=== PATIENT | male | born 1955 | race Caucasian/White ===

== ENCOUNTER 2019-10-05 22:42 | Inpatient (IN) ==
[2019-10-05] MEDS ORDERED: ASPIRIN 325 MG TABLET PO STA (23:27)
[2019-10-05] MEDS ORDERED: NITROGLYCERIN SL 0.4 MG TABLET SL PRN (23:27)
[2019-10-05 23:48] LABS: Basophils # 0.1 10*3/uL (0.0-0.2); Basophils % 0.8 % (0.0-0.8); Eosinophils % 0.2 % (0.00-10.9); Hematocrit 48.9 VOL% (42.0-52.0); Hemoglobin 16.4 GM/DL (14.0-18.0); Immature Granulocytes % 0.6 %; Immature Granulocytes Absolute 0.09 #; Lymphocytes # 4.2 10*3/uL (1.4-4.0); Lymphocytes % 28.6 % (21.2-54.2); Mean Corpuscular HGB Conc 33.5 GM/DL (32-36); Mean Corpuscular Volume 97.2 FL (87-102); Mean Platelet Volume 9.8 FL (9.6-12.0); Monocytes % 10.3 % (1.7-12.7); Neutrophils % 59.5 % (38.7-73.9); Platelet Count 274 T/CUMM (130-400); Red Blood Count 5.03 MC/CUMM (3.8-5.5); Red Cell Distribution Width 14.5 % (9.3-17.3); White Blood Count 14.6 T/CUMM (4-12)
[2019-10-05 23:53] LABS: Albumin 3.9 G/DL (3.4-5.0); Bilirubin,Total 0.5 MG/DL (0.2-1.0); Calcium 9.2 MG/DL (8.5-10.1); Osmolality,Calculated 283.4 MOS/KG (273-304); Total Protein 7.1 G/DL (6.4-8.3)
[2019-10-06 00:03] LABS: PT Patient Result 10.6 SECS (9.8-11.9)
[2019-10-06] MEDS ORDERED: ONDANSETRON 4 MG/2 ML VIAL IV ONE (00:31)
[2019-10-06] MEDS ORDERED: ENOXAPARIN 30 MG/0.3 ML SYRINGE SUBCUT STA (00:31)
[2019-10-06] MEDS ORDERED: MORPHINE 4 MG/1 ML VIAL IV STA (00:31)
[2019-10-06] MEDS ORDERED: ENOXAPARIN 100 MG/ML SYRINGE SUBCUT STA (00:34)
[2019-10-06] MEDS ORDERED: TICAGRELOR 90 MG TABLET PO STA (01:18)
[2019-10-06] MEDS ORDERED: NICOTINE 21 MG/24 HR PATCH TRANSDERM PRN (01:31)
[2019-10-06] MEDS ORDERED: guaiFENesin/DM ER 600-30 MG TABLET PO PRN (01:31)
[2019-10-06] MEDS ORDERED: hydrALAZINE 20 MG/1 ML VIAL IV PRN (01:31)
[2019-10-06] MEDS ORDERED: diphenhydrAMINE CAP 25 MG CAPSULE PO PRN (01:31)
[2019-10-06] MEDS ORDERED: DEXTROSE 50% 25 GM/50 ML VIAL IV PRN (01:31)
[2019-10-06] MEDS ORDERED: ALUMINUM/MAGNES/SIMETH MAX STR 30 ML UDCUP PO PRN (01:31)
[2019-10-06] MEDS ORDERED: ACETAMINOPHEN 325 MG TABLET PO PRN (01:31)
[2019-10-06] MEDS ORDERED: GLUCAGON 1 MG VIAL IM PRN (01:31)
[2019-10-06] MEDS ORDERED: MORPHINE 4 MG/1 ML VIAL IV PRN (01:31)
[2019-10-06] MEDS ORDERED: ONDANSETRON 4 MG/2 ML VIAL IV PRN (01:31)
[2019-10-06 02:03] LABS: Risk Ratio 8.06; VLDL CHOLESTEROL 99.6 MG/DL
[2019-10-06] MEDS ORDERED: NITROGLYCERIN SL 0.4 MG TABLET SL PRN (02:44)
[2019-10-06 09:05] LABS: CKMB % 6.2 %
[2019-10-06 09:11] LABS: Troponin I 22.4 NG/ML (0.00-0.045)
[2019-10-06 09:18] LABS: Apearance,Urine CLEAR (Clear); Bilirubin,Urine Negative (Negative); Blood, Urine Negative (Negative); Glucose,Urine (UA) Negative (Negative); Ketones,Urine Negative (Negative); Mucus,Urine Occasional /LPF (Occasional); Nitrite,Urine Negative (Negative); Protein,Urine Negative; RBC,Urine 3 /HPF (0-4); Squamous Epithelial Cell,Urine Occasional /HPF (0-10); Urine Color Yellow (Yellow); Urine Urobilinogen < 2.0 EU/DL (0.2-1.0); WBC,Urine 10 /HPF (0-6)
[2019-10-06] MEDS ORDERED: diphenhydrAMINE CAP 25 MG CAPSULE PO ONE (10:53)
[2019-10-06] MEDS ORDERED: DIAZEPAM 5 MG TABLET PO ONE (10:53)
[2019-10-06] MEDS ORDERED: LIDOCAINE 1% 20 ML VIAL ONE (11:18)
[2019-10-06] MEDS ORDERED: HEPARIN/NACL 0.9% 2 UNITS/ML 1,000 ML IV ONE (11:18)
[2019-10-06] MEDS: SODIUM CHLORIDE 0.45% 1,000 ML IV SCH ×2 (11:37→21:01)
[2019-10-06] MEDS: ASPIRIN EC 81 MG TABLET PO SCH (11:37)
[2019-10-06] MEDS ORDERED: NITROGLYCERIN DRIP 50 MG/250 ML BOTTLE IV ONE (11:42)
[2019-10-06] MEDS ORDERED: VERAPAMIL 5 MG/2 ML VIAL ONE (11:42)
[2019-10-06] MEDS ORDERED: MIDAZOLAM 2 MG/2 ML VIAL ONE (11:47)
[2019-10-06] MEDS ORDERED: HYDROmorphone 2 MG/1 ML VIAL ONE (11:47)
[2019-10-06 12:05] LABS: CKMB % 6.6 %
[2019-10-06 12:15] LABS: Troponin I 29.6 NG/ML (0.00-0.045)
[2019-10-06] MEDS ORDERED: SODIUM CHLORIDE 0.9% 1,000 ML IV SCH (12:30)
[2019-10-06 14:22] LABS: CKMB % 6.5 %
[2019-10-06 14:23] LABS: Troponin I 27.7 NG/ML (0.00-0.045)
[2019-10-06] MEDS: CLOPIDOGREL 75 MG TABLET PO SCH (14:28)
[2019-10-06] MEDS ORDERED: ROSUVASTATIN 20 MG TABLET PO SCH (21:00)
[2019-10-06] MEDS: carvediloL 3.125 MG TABLET PO SCH (21:02)
[2019-10-07] MEDS: SODIUM CHLORIDE 0.45% 1,000 ML IV SCH ×2 (05:59→14:27)
[2019-10-07 06:11] LABS: Basophils # 0.1 10*3/uL (0.0-0.2); Basophils % 1.3 % (0.0-0.8); Eosinophils # 0.4 10*3/uL (0.0-0.87); Eosinophils % 4.5 % (0.00-10.9); Hematocrit 44.4 VOL% (42.0-52.0); Immature Granulocytes % 0.5 %; Immature Granulocytes Absolute 0.04 #; Lymphocytes # 2.8 10*3/uL (1.4-4.0); Lymphocytes % 36.2 % (21.2-54.2); Mean Corpuscular HGB Conc 33.8 GM/DL (32-36); Mean Corpuscular Volume 96.5 FL (87-102); Mean Platelet Volume 9.5 FL (9.6-12.0); Monocytes % 11.3 % (1.7-12.7); Neutrophils % 46.2 % (38.7-73.9); Platelet Count 209 T/CUMM (130-400); Red Cell Distribution Width 14.3 % (9.3-17.3); White Blood Count 7.7 T/CUMM (4-12)
[2019-10-07 06:28] LABS: Calcium 7.9 MG/DL (8.5-10.1); Osmolality,Calculated 276.5 MOS/KG (273-304)
[2019-10-07 08:42] LABS: CKMB % 3.6 %
[2019-10-07 08:43] LABS: Troponin I 15.4 NG/ML (0.00-0.045)
[2019-10-07] MEDS: ASPIRIN EC 81 MG TABLET PO SCH (08:56)
[2019-10-07] MEDS: carvediloL 3.125 MG TABLET PO SCH (08:56)
[2019-10-07] MEDS: CLOPIDOGREL 75 MG TABLET PO SCH (08:56)
[2019-10-07 11:49] VITALS: BP 155/84
[2019-10-08] MEDS ORDERED: LOSARTAN 25 MG TABLET PO SCH (09:00)
== END 2019-10-07 14:12 | disposition home or self-care (01) | DRG 281 ==
LOC: N.ED 22:42 → N.TELEN 22:42
PROVIDERS: ADMIT Internal Medicine; ATTEND Internal Medicine

== ENCOUNTER 2021-12-18 17:23 | Inpatient (IN) ==
[2021-12-18 17:44] LABS: Basophils # 0.1 10*3/uL (0.0-0.2); Basophils % 1.2 % (0.0-0.8); Eosinophils # 0.2 10*3/uL (0.0-0.87); Eosinophils % 1.7 % (0.00-10.9); Hematocrit 51.9 VOL% (42.0-52.0); Hemoglobin 17.7 GM/DL (14.0-18.0); Immature Granulocytes % 0.9 %; Immature Granulocytes Absolute 0.09 #; Lymphocytes # 3.6 10*3/uL (1.4-4.0); Lymphocytes % 36.6 % (21.2-54.2); Mean Corpuscular HGB Conc 34.1 GM/DL (32-36); Mean Platelet Volume 9.3 FL (9.6-12.0); Monocytes # 0.9 10*3/uL (0.11-0.8); Monocytes % 9.6 % (1.7-12.7); Platelet Count 284 T/CUMM (130-400); Red Blood Count 5.19 MC/CUMM (3.8-5.5); Red Cell Distribution Width 14.3 % (9.3-17.3); White Blood Count 9.7 T/CUMM (4-12)
[2021-12-18] MEDS ORDERED: ASPIRIN CHEW 81 MG TABLET PO STA (18:14)
[2021-12-18 18:17] LABS: Albumin 4.3 G/DL (3.4-5.0); Bilirubin,Total 0.4 MG/DL (0.20-1.00); Calcium 9.6 MG/DL (8.5-10.1); Potassium 4.6 MMOL/L (3.5-5.1); Total Protein 7.7 G/DL (6.4-8.2)
[2021-12-18 19:08] LABS: INR 0.9; PT Patient Result 10.3 SECS (10.1-12.1); Partial Thromboplastin Time 25.9 SECS (23.7-32.9)
[2021-12-18] MEDS ORDERED: LABETALOL 20 MG/4 ML SYRINGE IV STA (19:12)
[2021-12-18] MEDS ORDERED: traZODone 50 MG TABLET PO PRN (19:35)
[2021-12-18] MEDS ORDERED: carvediloL 3.125 MG TABLET PO STA (19:42)
[2021-12-18] MEDS ORDERED: LOSARTAN 50 MG TABLET PO STA (19:44)
[2021-12-18] MEDS ORDERED: MORPHINE 2 MG/1 ML SYRINGE IV STA (21:09)
[2021-12-18] MEDS ORDERED: MORPHINE 2 MG/1 ML SYRINGE ONE (21:10)
[2021-12-18] MEDS: SIMVASTATIN 10 MG TABLET PO SCH (21:40)
[2021-12-18] MEDS: carvediloL 12.5 MG TABLET PO SCH (21:40)
[2021-12-18] MEDS: ENOXAPARIN 100 MG/ML SYRINGE SUBCUT SCH (21:42)
[2021-12-18] MEDS: NITROGLYCERIN SL 0.4 MG TABLET SL PRN ×3 (21:48→22:01)
[2021-12-19] MEDS ORDERED: MORPHINE 2 MG/1 ML SYRINGE IV PRN (00:31)
[2021-12-19 05:44] LABS: Risk Ratio 7.59
[2021-12-19 05:46] LABS: CKMB % 3.89 %
[2021-12-19 05:51] LABS: High Sensitive Troponin I* 1255.2 ng/L (0-78)
[2021-12-19 08:29] LABS: CKMB % 4.9 %
[2021-12-19 08:30] LABS: High Sensitive Troponin I* 1660.5 ng/L (0-78)
[2021-12-19] MEDS ORDERED: ASPIRIN EC 81 MG TABLET PO SCH ×2 (09:00→21:00)
[2021-12-19] MEDS: carvediloL 12.5 MG TABLET PO SCH ×2 (09:39→20:33)
[2021-12-19] MEDS: LOSARTAN 50 MG TABLET PO SCH (09:39)
[2021-12-19] MEDS: PANTOPRAZOLE 40 MG TABLET PO SCH (09:39)
[2021-12-19] MEDS: ENOXAPARIN 100 MG/ML SYRINGE SUBCUT SCH ×2 (09:40→20:33)
[2021-12-19] MEDS ORDERED: MAGNESIUM HYDROXIDE SUSP 30 ML UDCUP PO PRN (11:14)
[2021-12-19] MEDS ORDERED: ONDANSETRON 4 MG/2 ML VIAL IV PRN (11:14)
[2021-12-19] MEDS ORDERED: ACETAMINOPHEN 325 MG TABLET PO PRN (11:14)
[2021-12-19] MEDS: SIMVASTATIN 10 MG TABLET PO SCH (20:33)
[2021-12-19] MEDS ORDERED: MAGNESIUM OXIDE 400 MG TABLET PO SCH (21:00)
[2021-12-20 06:01] LABS: Basophils # 0.1 10*3/uL (0.0-0.2); Basophils % 1.3 % (0.0-0.8); Eosinophils # 0.3 10*3/uL (0.0-0.87); Hematocrit 48.8 VOL% (42.0-52.0); Hemoglobin 16.2 GM/DL (14.0-18.0); Immature Granulocytes % 0.5 %; Immature Granulocytes Absolute 0.04 #; Lymphocytes # 3.8 10*3/uL (1.4-4.0); Lymphocytes % 48.3 % (21.2-54.2); Mean Corpuscular HGB Conc 33.2 GM/DL (32-36); Mean Platelet Volume 9.6 FL (9.6-12.0); Monocytes # 0.7 10*3/uL (0.11-0.8); Monocytes % 8.9 % (1.7-12.7); Platelet Count 241 T/CUMM (130-400); Red Blood Count 4.83 MC/CUMM (3.8-5.5); Red Cell Distribution Width 14.1 % (9.3-17.3); White Blood Count 7.8 T/CUMM (4-12)
[2021-12-20 06:25] LABS: Albumin 3.2 G/DL (3.4-5.0); Bilirubin,Total 0.7 MG/DL (0.20-1.00); Calcium 8.7 MG/DL (8.5-10.1); Potassium 3.9 MMOL/L (3.5-5.1); Total Protein 6.4 G/DL (6.4-8.2)
[2021-12-20 06:44] LABS: Eosinophils 4 % (0-10); Lymphocytes 44 % (20-55); Total Cells Counted 100
[2021-12-20 06:45] LABS: Atypical Lymphocytes Few; Platelet Estimate Normal
[2021-12-20] MEDS ORDERED: POTASSIUM CHLORIDE RIDER 10 MEQ/100 ML PREMIX IV PRN (07:45)
[2021-12-20] MEDS ORDERED: MAGNESIUM SULF RIDER 2 GM/50 ML PREMIX IV PRN (07:45)
[2021-12-20] MEDS ORDERED: SODIUM CHLORIDE 0.9% 1,000 ML IV SCH (08:00)
[2021-12-20] MEDS: LOSARTAN 50 MG TABLET PO SCH (08:43)
[2021-12-20] MEDS: carvediloL 12.5 MG TABLET PO SCH (08:43)
[2021-12-20] MEDS: PANTOPRAZOLE 40 MG TABLET PO SCH (08:43)
[2021-12-20] MEDS ORDERED: HEPARIN/NACL 0.9% 2 UNITS/ML 2,000 UNIT/1,000 ML BAG IV ONE (10:40)
[2021-12-20] MEDS ORDERED: NITROGLYCERIN DRIP 50 MG/250 ML BOTTLE IV ONE (10:44)
[2021-12-20] MEDS ORDERED: VERAPAMIL 5 MG/2 ML VIAL ONE (10:45)
[2021-12-20] MEDS ORDERED: HYDROmorphone 1 MG/1 ML SYRINGE ONE (10:56)
[2021-12-20] MEDS ORDERED: MIDAZOLAM 2 MG/2 ML VIAL ONE (10:56)
[2021-12-20] MEDS ORDERED: diphenhydrAMINE CAP 50 MG CAPSULE PO ONE (11:00)
[2021-12-20] MEDS ORDERED: DIAZEPAM 5 MG TABLET PO ONE (11:00)
[2021-12-20] MEDS ORDERED: ENOXAPARIN 30 MG/0.3 ML SYRINGE ONE (11:08)
[2021-12-20] MEDS ORDERED: CLOPIDOGREL 75 MG TABLET PO STA (11:56)
[2021-12-20 16:03] VITALS: BP 136/75
== END 2021-12-20 16:47 | disposition home or self-care (01) | DRG 282 ==
LOC: N.ED 17:23 → N.EDINP 21:55 → N.TELEN 12-19 04:06
PROVIDERS: ADMIT Internal Medicine Cardiovascular Disease; ATTEND Internal Medicine Cardiovascular Disease